=== PATIENT | female | born 1995 | race Caucasian/White ===

== ENCOUNTER 2017-05-22 11:23 | Emergency (ER) | payer BC, OTHER ==
[2017-05-22 13:29] VITALS: BP 112/69
--- NOTE | 2017-05-22 13:56 | UC ---
Lower Extremity/Ankle HPI - HPI Summary HPI Summary: Slipped off the edge of the step and injured th emedial aspect of her right ankle, also has right ear pain for 2-3 weeks, has been using sudafed and flonase without relief. - History of Current Complaint Chief Complaint: UCLowerExtremity Stated Complaint: RIGHT ANKLE;RIGHT EAR Time Seen by Provider: 05/22/17 13:29 Hx Obtained From: Patient Hx Last Menstrual Period: now ?: No Onset/Duration: Sudden Onset, Lasting Weeks Severity Initially: Moderate Severity Currently: Moderate Aggravating Factor(s): Standing, Ambulation Alleviating Factor(s): Rest Able to Bear Weight: Yes - Allergies/Home Medications Allergies/Adverse Reactions: Allergies Allergy/AdvReac Type Severity Reaction Status Date / Time No Known Allergies Allergy Verified 05/22/17 13:29 PMH/Surg Hx/FS Hx/Imm Hx Previously Healthy: Yes - Surgical History Surgical History: None - Family History Known Family History: Positive: Cardiac Disease, Diabetes - Social History Alcohol Use: Daily Alcohol Amount: 6 Substance Use Type: Marijuana Substance Use Comment - Amount & Last Used: today 05/22/17 Smoking Status (MU): Never Smoked Tobacco Review of Systems Constitutional: Negative Skin: Negative Eyes: Negative ENT: Ear Ache, Nasal Discharge Respiratory: Negative Cardiovascular: Negative Gastrointestinal: Negative Genitourinary: Negative Motor: Negative Neurovascular: Negative Musculoskeletal: Arthralgia, Decreased ROM, Edema Neurological: Negative Psychological: Negative Is Patient Immunocompromised?: No All Other Systems Reviewed And Are Negative: Yes Physical Exam Triage Information Reviewed: Yes Appearance: Well-Nourished, Ill-Appearing, Pain Distress Vital Signs: Initial Vital Signs Temp 98.5 F 05/22/17 13:19 Pulse 80 05/22/17 13:19 Resp 20 05/22/17 13:19 BP 112/69 05/22/17 13:19 Vital Signs Reviewed: Yes Eye Exam: Normal ENT Exam: Normal ENT: Positive: Pharynx normal, Pharyngeal erythema, TM bulging, TM dull, TM red - right ear Dental Exam: Normal Neck exam: Normal Neck: Positive: Supple, Nontender, No Lymphadenopathy Respiratory Exam: Normal Respiratory: Positive: Chest non-tender, Lungs clear, Normal breath sounds Cardiovascular Exam: Normal Cardiovascular: Positive: RRR, No Murmur, Pulses Normal Abdominal Exam: Normal Abdomen Description: Positive: Nontender, No Organomegaly, Soft Bowel Sounds: Positive: Present Musculoskeletal Exam: Normal Musculoskeletal: Positive: Strength Intact, ROM Intact, No Edema Neurological Exam: Normal Neurological: Positive: Alert, Muscle Tone Normal Psychological Exam: Normal Skin Exam: Normal Lower Extremity Course/Dx - Course Course Of Treatment: hx obtained, exam performed ,meds reviewed, xray obtained AND IS NEGTIVE, ORLIN WRAP PLACED AND educated on RICE, treated for right ear infection - Differential Dx/Diagnosis Differential Diagnosis/HQI/PQRI: Fracture (Closed), Sprain, Strain Provider Diagnoses: right otitis media Discharge - Discharge Plan Condition: Stable Disposition: HOME Prescriptions: Amoxicillin PO (*) [Amoxicillin 875 MG (*)] 875 mg PO BID #20 tab Patient Education Materials: Otitis Media (ED), Ankle Sprain (ED) Referrals: Non Staff,Doctor [Primary Care Provider] - Jose Massey MD [Medical Doctor] - Additional Instructions: 1. Take the antibiotic as prescribed for the ear infection 2. Wear the orlin wrap to help reduce the swelling and supply support to the ankle. 3. Follow up if pain is not improving.
--- NOTE | 2017-05-22 14:16 | RAD ---
INDICATION: Pain and bruising over the medial malleolus. COMPARISON: None. TECHNIQUE: 3 views of the right ankle were obtained. FINDINGS: The bones are normal alignment. Joint spaces appear maintained. No fracture is seen. IMPRESSION: Normal ankle radiograph. If the patient's symptoms persist, follow-up imaging is recommended.
== END 2017-05-22 14:34 | disposition home or self-care (01) ==
LOC: UCCORT 11:23
DX: S99.911A Unspecified injury of right ankle, initial encounter (principal); W18.49XA Other slipping, tripping and stumbling without falling, initial encounter; Y93.9 Activity, unspecified; Y92.9 Unspecified place or not applicable; H66.91 Otitis media, unspecified, right ear; F12.90 Cannabis use, unspecified, uncomplicated
CPT/HCPCS: 99212; G0463